=== PATIENT | male | born 1985 | race Two or more races ===

== ENCOUNTER 2018-03-05 07:41 | Outpatient (CLI) | payer OTHER ==
[2018-03-05 11:07] LABS: BASOPHILS % (AUTO) 0.3 %; EOSINOPHILS # (AUTO) 0.2 10^3/uL (0.0-0.7); EOSINOPHILS % (AUTO) 2.9 %; HGB - HEMOGLOBIN 14.7 g/dL (14.0-18.0); LYMPHOCYTES % (AUTO) 35.2 %; MEAN CORPUSCULAR HGB CONC 34.8 g/dL (32.0-36.0); MEAN PLATELET VOLUME 10.2 fL (7.4-11.4); MONOCYTES # (AUTO) 0.3 10^3/uL (0.0-1.0); NEUTROPHILS # (AUTO) 3.1 10^3/uL (1.5-6.6); NEUTROPHILS % (AUTO) 55.6 %; PLT - PLATELET COUNT 211 10^3/uL (130-450); RED BLOOD COUNT 4.91 10^6/uL (4.70-6.10); RED CELL DISTRIBUTION WIDTH 13.1 % (12.0-15.0); WHITE BLOOD COUNT 5.6 x10^3/uL (4.8-10.8)
[2018-03-05 11:25] LABS: ALBUMIN 4.6 g/dL (3.2-5.5); ALBUMIN/GLOBULIN RATIO 1.4 (1.0-2.2); ALKALINE PHOSPHATASE 48 IU/L (42-121); ALT ALANINE AMINOTRANSFERASE 35 IU/L (10-60); AST ASPARTATE AMINOTRANSFERASE 25 IU/L (10-42); BILIRUBIN,TOTAL 0.9 mg/dL (0.2-1.0); BUN - BLOOD UREA NITROGEN 9 mg/dL (6-20); CALCIUM 9.6 mg/dL (8.5-10.3); CARBON DIOXIDE - CO2 27 mmol/L (21-32); CHLORIDE 102 mmol/L (101-111); CHOL/HDL RATIO 4.5 (<5.0); CHOLESTEROL 138 mg/dL; CREATININE 0.9 mg/dL (0.6-1.2); GFR - MDRD 98 (>89); GLUCOSE 96 mg/dL (70-100); HDL CHOLESTEROL 31 mg/dL; LDL CHOLESTEROL,CALCULATED 85 mg/dL; LDL/HDL RATIO 2.7 (<3.6); SODIUM 138 mmol/L (135-145); TOTAL PROTEIN 7.8 g/dL (6.7-8.2); VLDL CHOLESTEROL 22 mg/dL
[2018-03-05 11:39] LABS: THYROID STIMULATING HORMONE 2.79 uIU/mL (0.34-5.60)
[2018-03-05 11:40] LABS: FREE T4 (FREE THYROXINE) 1.01 ng/dL (0.58-1.64)
[2018-03-05 11:44] LABS: TOTAL T3 1.04 ng/mL (0.87-1.78)
[2018-03-11 12:02] LABS: T3 REVERSE 24 ng/dL (8-25)
== END 2018-03-05 07:42 | disposition home or self-care (01) ==
LOC: LAB.F 07:41
PROVIDERS: ATTEND Family Medicine
DX: Z00.00 Encounter for general adult medical examination without abnormal findings (principal); R53.83 Other fatigue; G03.9 Meningitis, unspecified; R01.1 Cardiac murmur, unspecified
CPT/HCPCS: 36415; 80053; 80061; 82626; 82652; 83721; 84439; 84443; 84480; 84481; 84482; 85025

== ENCOUNTER 2018-11-02 07:30 | Outpatient (CLI) | payer OTHER ==
[2018-11-02 10:59] LABS: CHOL/HDL RATIO 3.7 (<5.0); CHOLESTEROL 136 mg/dL; GLUCOSE,FASTING 106 mg/dL (70-100); HDL CHOLESTEROL 37 mg/dL; LDL CHOLESTEROL,CALCULATED 82 mg/dL; LDL/HDL RATIO 2.2 (<3.6); VLDL CHOLESTEROL 17 mg/dL
== END 2018-11-02 07:31 | disposition home or self-care (01) ==
LOC: LAB.F 07:30
PROVIDERS: ATTEND Nurse Practitioner Family
DX: Z13.220 Encounter for screening for lipoid disorders (principal); Z13.1 Encounter for screening for diabetes mellitus; K25.9 Gastric ulcer, unspecified as acute or chronic, without hemorrhage or perforation
CPT/HCPCS: 36415; 80061; 82947; 83721

== ENCOUNTER 2018-11-04 08:00 | Outpatient (CLI) | payer OTHER ==
[2018-11-04 13:37] LABS: H. PYLORIS ANTIGEN STL NEGATIVE (Negative)
== END 2018-11-04 23:59 | disposition home or self-care (01) ==
LOC: LAB.R 08:00
PROVIDERS: ATTEND Nurse Practitioner Family
DX: Z13.220 Encounter for screening for lipoid disorders (principal); K25.9 Gastric ulcer, unspecified as acute or chronic, without hemorrhage or perforation; Z13.1 Encounter for screening for diabetes mellitus
CPT/HCPCS: 87338

== ENCOUNTER 2021-06-29 17:00 | Outpatient (CLI) | payer OTHER ==
--- NOTE | 2021-07-04 14:04 | XRAY Report ---
PROCEDURE: Wrist 4 View LT INDICATIONS: LEFT WRIST PAIN TECHNIQUE: 4 views of the wrist were acquired. COMPARISON: None. FINDINGS: BONES: No acute, displaced fracture or dislocation. The carpal bones are normally aligned. SOFT TISSUES: No focal abnormality. IMPRESSION: 1.No acute osseous abnormality. Reviewed by: Kin Michael MD on 06/29/2021 5:17 PM PST Approved by: Kin Michael MD on 06/29/2021 5:17 PM [facility] Station ID: [id number]
== END 2021-06-29 17:01 | disposition home or self-care (01) ==
LOC: DI.S 17:00
PROVIDERS: ATTEND Physician Assistant
DX: M25.532 Pain in left wrist (principal)

== ENCOUNTER 2021-07-14 08:00 | Outpatient (CLI) | payer OTHER ==
--- NOTE | 2021-07-14 18:25 | XRAY Report ---
PROCEDURE: Wrist 4 View LT INDICATIONS: LEFT WRIST PAIN TECHNIQUE: 4 views of the wrist were acquired. COMPARISON: None FINDINGS: Bones: No fractures or dislocations. No suspicious bony lesions. Scaphoid view: No scaphoid fractures are seen. Soft tissues: No suspicious soft tissue calcifications. IMPRESSION: No significant wrist plain film abnormality is seen. If it would be helpful for clinical management decision making, please consider a dedicated, schedule d wrist MRI for further evaluation (assuming that there is no contraindication). This should be perf ormed according to the arthrogram protocol, if there is strong clinical concern for a ligamentous abn ormality. Reviewed by: Joseph Valenzuela MD on 07/14/2021 5:23 PM [facility] Approved by: Joseph Valenzuela MD on 07/14/2021 5:23 PM [facility] Station ID: [id number]
== END 2021-07-14 23:59 | disposition home or self-care (01) ==
LOC: DI.S 08:00
PROVIDERS: ATTEND Physician Assistant Medical
DX: M25.532 Pain in left wrist (principal)

== ENCOUNTER 2021-07-23 12:51 | Outpatient (CLI) | payer OTHER ==
[2021-07-23] MEDS ORDERED: GADOBUTROL 7.5 MMOL/7.5 ML VIAL ONE (13:06)
[2021-07-23] MEDS ORDERED: IOTHALAMATE MEGLUMINE 50 ML VIAL ONE (13:06)
[2021-07-23] MEDS ORDERED: lidocaine 1% 20 ML MDV ONE (13:06)
[2021-07-23] MEDS ORDERED: IOTHALAMATE MEGLUMINE 50 ML VIAL IVP ONE (14:19)
[2021-07-23] MEDS ORDERED: GADOBUTROL 7.5 MMOL/7.5 ML VIAL IVP ONE (14:22)
[2021-07-23] MEDS ORDERED: lidocaine 1% 20 ML MDV SUBQ ONE (14:23)
--- NOTE | 2021-07-23 16:33 | XRAY Report ---
PROCEDURE: Arthrogram Needle Placement INDICATIONS: LEFT WRIST PAIN CONTRAST: CONTRAST: conray/gadavis FLUOROSCOPY TIME: FLUORO TIME: 0.8 min and NUMBER IMAGES: 3 TECHNIQUE: After informed consent had been obtained, the wrist was examined fluoroscopically, and a site chosen for injection of the radiocarpal compartment from a dorsal approach. Skin was prepped and draped in the usual fashion and 1% lidocaine infiltrated from the skin down to the articular surface. A hypode rmic needle was then introduced into the articular space and a modest amount of contrast medium was i nstilled confirming intra-articular needle tip placement. This was followed by approximately 4 mL of a dilute gadolinium solution. Needle was removed and dressing was applied. The patient experienced no complications throughout the procedure and left the fluoroscopic suite in no apparent distress. FINDINGS: A single fluoroscopic spot image demonstrates intra-articular location to injected iodinated contrast . IMPRESSION: Successful fluoroscopic-guided administration of dilute Gadolinium solution for wrist MR arthrogram. Reviewed by: Maryam Escobedo MD on 07/23/2021 4:31 PM PST Approved by: Maryam Escobedo MD on 07/23/2021 4:31 PM PST Station ID: [id number]
--- NOTE | 2021-07-23 16:50 | MRI Report ---
PROCEDURE: Arthrogram Wrist LT INDICATIONS: LEFT WRIST PAIN TECHNIQUE: After the administration of 3-4 mL of dilute intra-articular Gadolinium contrast into the radiocarpal compartment, coronal T1 spin echo with fat saturation and T2 fast spin echo with fat saturation, axi al T1 spin echo and T2 fast spin echo with fat saturation, sagittal T1 spin echo with and without fat saturation through the wrist. COMPARISON: None. FINDINGS: BONES: The carpal bones are normally aligned. No bone marrow contusions or fractures. No evidence for avascular necrosis. CARTILAGE: The cartilage surfaces appear normal. CARPAL LIGAMENTS: The scapholunate and lunotriquetral ligaments appear intact. In the absence of in tra-articular contrast, the extrinsic carpal ligaments are not well identified. On sagittal images, the pisohamate ligament appears intact. TRIANGULAR FIBROCARTILAGE COMPLEX: Central perforation of the TFCC with contrast extending into the distal radioulnar articulation. In addition, The extensor carpi ulnaris tendon is normal in location and morphology. CARPAL TUNNEL: Normal appearance, including the median nerve. GUYON'S CANAL: The ulnar nerve appears normal. EXTENSOR TENDON COMPARTMENT: Normal morphology, without pathologic tendon sheath fluid. SOFT TISSUES: No abnormal collection or ganglion cysts. IMPRESSION: 1.Central perforation of the TFCC. Reviewed by: Kin Michael MD on 07/23/2021 4:48 PM PST Approved by: Kin Michael MD on 07/23/2021 4:48 PM PST Station ID: [id number]
== END 2021-07-23 12:52 | disposition home or self-care (01) ==
LOC: DI 12:51
PROVIDERS: ATTEND Physician Assistant Medical
DX: M24.132 Other articular cartilage disorders, left wrist (principal)
CPT/HCPCS: 25246; 73222; 77002; A9585; Q9961

== ENCOUNTER 2022-10-01 10:22 | Outpatient (CLI) | payer OTHER ==
[2022-10-01 15:26] LABS: BASOPHILS % (AUTO) 0.7 %; EOSINOPHILS # (AUTO) 0.1 10^3/uL (0.0-0.7); EOSINOPHILS % (AUTO) 1.7 %; HGB - HEMOGLOBIN 14.5 g/dL (14.0-18.0); LYMPHOCYTES % (AUTO) 33.7 %; MEAN CORPUSCULAR HEMOGLOBIN 29.4 pg (27.0-31.0); MEAN CORPUSCULAR HGB CONC 33.7 g/dL (32.0-36.0); MEAN PLATELET VOLUME 12.5 fL (7.4-11.4); MONOCYTES # (AUTO) 0.4 10^3/uL (0.0-1.0); MONOCYTES % (AUTO) 7.5 %; NEUTROPHILS # (AUTO) 3.3 10^3/uL (1.5-6.6); NEUTROPHILS % (AUTO) 56.2 %; PLT - PLATELET COUNT 230 10^3/uL (130-450); RED BLOOD COUNT 4.94 10^6/uL (4.70-6.10); RED CELL DISTRIBUTION WIDTH 13.3 % (12.0-15.0); WHITE BLOOD COUNT 5.9 x10^3/uL (4.8-10.8)
[2022-10-01 15:54] LABS: ALBUMIN 4.6 g/dL (3.2-5.5); ALBUMIN/GLOBULIN RATIO 1.6 (1.0-2.2); BILIRUBIN,TOTAL 1.2 mg/dL (0.2-1.0); CALCIUM 9.2 mg/dL (8.5-10.3); TOTAL PROTEIN 7.4 g/dL (6.7-8.2)
[2022-10-01 16:08] LABS: THYROID STIMULATING HORMONE 2.36 uIU/mL (0.34-5.60)
[2022-10-01 20:47] LABS: ESTIMATED AVERAGE GLUCOSE 97 mg/dL (70-100)
== END 2022-10-01 10:23 | disposition home or self-care (01) ==
LOC: LAB.S 10:22
PROVIDERS: ATTEND Registered Nurse
DX: R42 Dizziness and giddiness (principal)
CPT/HCPCS: 36415; 80053; 83036; 84443; 85025

== ENCOUNTER 2022-12-17 08:55 | Outpatient (CLI) | payer OTHER ==
--- NOTE | 2022-12-17 09:26 | CARDIAC PROCEDURE NOTE ---
Stress Test Report Service Date: 12/17/22 Service Time: 09:30 Ordering Provider: MELIZA De La Cruz FNP Indication for Test: Assess episodic dizziness/lightheadedness, occurring with prolonged standing or sudden change in gaze position. Significant Medical History: (Rodrigo) is scheduled for a treadmill stress echocardiogram today, to assess cardiac structure/function and response to exercise, in the setting of intermittent episodes of dizziness/lightheadedness. These episodes date back approximately 6 months and were initially noted following prolonged standing, while working at his computer workstation, though since then he has also had episodes that are triggered by a sudden change in his ocular gaze. For example, he might be driving and look away at the scenery then suddenly have the feeling, or he could be looking at his cell phone and then move his eyes somewhere else and feel the lightheadedness as well. He was treated for 1 week with prednisone and Sudafed without changes. He has never felt that he was close to passing out, because at the onset of these feelings he takes precautions to sit down and rest. Prior to the onset of the COVID pandemic he was playing soccer regularly, but had to discontinue this activity and has not resumed it. He gained weight, as much as 20 pounds, prior to the onset of the symptom complex in May 2022, but has actually lost 10 lbs since he began to increase his physical activity (about 3 months ago) by walking daily, with a goal of 1/2-hour on a route that includes hills. He is tolerating this exertion reasonably well, though he does state that with ocular gaze changes he may experience brief symptoms. There does not appear to be any correlation of heart rate with his symptoms. He notes resting heart rates in the 40s50s typically and he believes his heart rate increases appropriately with exertion. When seen for an evaluation at the [facility] walk-in clinic he was found to have an abnormal EKG, that showed FL prolongation and right axis deviation. No information is available regarding a prior EKG. Cardiac Risk Factors: Negative for history of hypertension, diabetes, hyperlipidemia (FLP in 2019 showed total cholesterol 136, LDLc 82, HDLc 37, TG 84), cigarette smoking and family history of atherosclerotic disease; he notes that his mother has high blood pressure. Type of Stress Test: ETT with Echocardiography Procedure: -Exercise Treadmill Test- After signing informed consent, the patient underwent echo imaging at rest and then performed treadmill exercise using a John protocol. The patient exercised for 11 minutes 53 seconds and achieved a peak heart rate of 156 (84 percent predicted maximum heart rate for age), and an estimated workload of 13.5 METS. The test was terminated due to fatigue/shortness of breath. Resting heart rate: 58 Peak heart rate: 156 Normal HR response to exercise. Resting BP: 143/76 Peak BP: 168/57 Elevated resting systolic BP with blunted response to exercise; note that for technical reasons BPs could not be obtained between 8:00 of exercise and 1:00 of Recovery. Normal decrease of diastolic BP with exercise. Rhythm during exercise: Sinus rhythm throughout, with 3 isolated PVCs. Symptoms: No chest discomfort, or dizziness/lightheadedness reported. EKG at rest showed sinus bradycardia with first-degree AV block (FL 230 ms), lef t atrial abnormality and right axis deviation, probable left posterior fascicular block. EKG at peak stress showed no ischemia by EKG criteria. In Recovery HR and BP rapidly/normally decreased towards baseline levels. Echo imaging, performed at rest and with stress, will be reported separately. ILucas MD, was present throughout this treadmill stress study and supervised it in its entirety. Summary: 1) Exercise tolerance slightly below average for age, as evidenced by WINSTON of 8%. 2) Abnormal resting EKG. 3) Adequate level of exercise was achieved on this treadmill stress test. 4) Abnormal BP response to exercise (though this evaluation possibly limited for technical reasons). 5) No ischemic changes by EKG criteria were seen at peak stress. 6) Preliminary echo image interpretation reveals normal left ventricular size, wall thickness and systolic function, with appropriate hyperdynamic augmentation of all segments with exercise, indicating no evidence of prior infarct or inducible ischemia. No significant valvular abnormality or elevation of estimated pulmonary artery systolic pressure seen on screening study. See separate report for more details. Conclusions and Recommendations: 1) Reassuring study regarding cardiac structure/function and response to exercise, without evidence of inducible ischemia. 2) Whether the conduction system abnormalities are significant and contributing to the patient's symptoms is unclear. He reports resting bradycardia, though his heart rate response to exercise was normal. It would be reasonable for him to undergo ambulatory rhythm monitoring to determine whether there is any rhythm correlation with his symptoms. I will try to reach his provider to see if a study can be ordered [facility] and completed prior to the patient's scheduled evaluation at [facility] on January 03.
== END 2022-12-17 08:56 | disposition home or self-care (01) ==
LOC: DI 08:55
PROVIDERS: ATTEND Registered Nurse
DX: R63.5 Abnormal weight gain (principal); I44.0 Atrioventricular block, first degree; R42 Dizziness and giddiness
CPT/HCPCS: 93016; 93017; 93018; 93350

== ENCOUNTER 2022-12-20 15:26 | Outpatient (CLI) | payer OTHER | END 2022-12-20 15:27 | disposition home or self-care (01) | LOC: MAC.INF 15:26 | PROVIDERS: ATTEND Internal Medicine | DX: R42 Dizziness and giddiness (principal); I44.0 Atrioventricular block, first degree | CPT/HCPCS: 93242 ==

== ENCOUNTER 2022-12-31 10:30 | Outpatient (CLI) | payer OTHER | END 2022-12-31 10:31 | disposition home or self-care (01) | LOC: MAC.INF 10:30 | PROVIDERS: ATTEND Internal Medicine | DX: I44.0 Atrioventricular block, first degree (principal); I49.1 Atrial premature depolarization | CPT/HCPCS: 93244 ==